=== PATIENT | male | born 1960 | race Caucasian/White ===

== ENCOUNTER 2016-12-30 13:15 | Emergency (ER) | payer OTHER ==
[~2016-12-30] VITALS: Ht 188 cm; Wt 81.8 kg
[2016-12-30 13:24] VITALS: BP 121/84; PULSE 76; RESP 15; O2SAT 100
--- NOTE | 2016-12-30 13:56 | DRSVH ---
PROCEDURE: X-RAY RIGHT ELBOW COMPLETE, MINIMUM THREE VIEWS ([id number]) INDICATIONS: RIGHT ELOW PAIN TECHNIQUE: 3 views of the elbow were acquired. COMPARISON: None. FINDINGS: Bones: No fractures or dislocations. No suspicious bony lesions. Soft tissues: No elbow joint effusion. No suspicious soft tissue calcifications. IMPRESSION: No acute fracture. No osseous lesion. If symptoms and/or clinical suspicion for patholog y persist, further assessment with repeat, or advanced imaging (e.g., CT, MRI, or bone scan) may be h elpful for further assessment. Dictated by: Feliciano Benitez M.D. on 12/30/2016 at 13:54 Approved by: Feliciano Benitez M.D. on 12/30/2016 at 13:55
--- NOTE | 2016-12-30 16:04 | ED.REPORT ---
HPI-Extremity Problem Upper Date of Service Dec 30, 2016 ED Provider: Janes Smith MD Pt is a 56 y.o. male who presents ot the ED c/o right elbow pain onset 2 weeks ago. Pt states that he hit his elbow against something while working on his house. He reports pain since the incident and intermittent right forearm numbness. He states that he is now having difficulty lifting objects with his right arm due to pain. Nursing Notes Stated Complaint: RIGHT ELBOW Chief Complaint: Extremity Trauma Nursing Notes Reviewed: Yes Allergies: Coded Allergies: Tetracyclines (Verified Adverse Reaction, Intermediate, Nausea, 12/30/16) Scheduled PRN Ibuprofen (Ibuprofen) 800 Mg Tablet 800 MG PO TID PRN PRN For Pain General Time Seen by MD: 16:03 Chief Complaint Elbow injury right Hx Obtained From: Patient Arrived By: Walk-in Onset Occurred: More than a week ago... (2 weeks) Caused by: Accidental Context: Occurred at: Home injury Location: : Elbow right Quality: Painful Severity: Current: Mild Recent Healthcare: No recent doctor visit, No recent hospitalization Past Medical History Past Medical History None reported Past Surgical History None reported Ambulatory Status Independent Review of Systems Musculoskeletal: Reports: Joint pain (Right elbow) Neurologic: Reports: Numbness (Right forearm) Complete sys rev & neg: except as marked. Physical Exam Initial Vital Signs Vital Signs (First) Date Time Temp Pulse Resp B/P Pulse Ox O2 Delivery O2 Flow Rate FiO2 12/30/16 13:24 36.2 76 15 121/84 100 Room Air Initial VS: Reviewed Head / Eyes: Atraumatic, Normocephalic Respiratory: Breath sounds normal, Clear to auscultation, No respiratory distress Cardiovascular: Regular rate & rhythm, Intact distal pulses Abdomen / GI: No distention Lower Extremities: Vascular intact, Neuro intact Skin: Warm, Dry, No cyanosis Neurologic: Alert, Oriented, Nonfocal Psychiatric: Mood/affect normal General/Constitutional: Awake, Alert, No acute distress, Well appearing, Well developed, Well hydrated, Well nourished, Not toxic appearing Upper Extremity / MS: Atraumatic, Inspection NL, Neurologic intact, Vascular intact Right Elbow: Positive: Tenderness present... (Right medial distal humerus), Negative: Deformity present, Ecchymosis present, ROM reduced... Interpretation & Diagnostics X-Ray Interpretation Xray Interpretation: IMPRESSION: No acute fracture. No osseous lesion. If symptoms and/or clinical suspicion for pathology persist, further assessment with repeat, or advanced imaging (e.g., CT, MRI, or bone scan) may be helpful for further assessment. Dictated by: Feliciano Benitez M.D. on 12/30/2016 at 13:54 Approved by: Feliciano Benitez M.D. on 12/30/2016 at 13:55 Study Performed: PROCEDURE: X-RAY RIGHT ELBOW COMPLETE, MINIMUM THREE VIEWS ([id number]) X-Ray Ordered: Elbow right Re-Eval/Medical Decision Med Decision/Clinical Course 56-year-old male presented in complaining of trauma to right elbow several weeks ago. He reports he banged it on something while working. He reports persistent pain. Tender medial aspect distal humerus. Full range of motion. X-ray no evidence of fracture. Possible contusion versus tendinitis. Recommend rice, NSAIDs. Source of Hx: Old records Re-Evaluation/Progress : Time of Eval: 16:10 Re-Evaluation/Progress Note: Physical exam performed. Discussed imaging results and plan for discharge, pt understands and agrees with plan. Counseled Regarding: Diagnosis, Lab results, Need for follow-up, When/why to return to ED Discharge & Departure Impression: Primary Impression: Elbow pain, right Disposition: Home Discharge Condition All VS Reviewed: Yes Condition: Stable Additional Instructions: Your imaging does not show a fracture. It appears that you have bruised your right elbow and there is associated inflammation. I recommend you rest and refrain from any lifting, apply ice to the area for 15- 20 minutes daily for the next week. I will also prescribe you extra strength ibuprofen which you can take every 8 hours for pain relief and to decrease inflammation. Follow-up with your primary care provider next week if your pain still persists. Seek care if you experience any new or worsening symptoms. Referrals: SARAI AWAD MD (PCP) Ashley Attestation Portions of this note were transcribed by Vita Corona. I, Dr. Smith personally performed the history, physical exam and medical decision-making; I reviewed and confirmed the accuracy of the information in the transcribed note. Signed by: Ashley Mckeon, 12/30/16 and [id number]. copies to: SARAI AWAD MD, Ben M MD Dec 30, 2016 16:04 VITA CORONA Dec 30, 2016 16:11
[2016-12-30] MEDS ORDERED: IBUP800T28 PO (16:10)
== END 2016-12-30 16:40 | disposition home or self-care (01) ==
LOC: SED 13:15
DX: M25.521 Pain in right elbow (principal); W22.8XXA Striking against or struck by other objects, initial encounter; Y93.89 Activity, other specified; Y92.009 Unspecified place in unspecified non-institutional (private) residence as the place of occurrence of the external cause; Y99.8 Other external cause status; Z88.1 Allergy status to other antibiotic agents